=== PATIENT | male | born 1960 | race Caucasian/White ===

== ENCOUNTER 2021-11-15 07:33 | Emergency (ER) | payer SELFPAY ==
[2021-11-15 08:33] LABS: #Basophils 0.1 10x3/uL (0.0-0.2); #Eosinphils 0.3 10x3/uL (0.0-0.5); #Monocytes 0.5 10x3/uL (0.0-1.1); %Basophils 0.8 % (0.0-2.0); %Eosinophils 3.9 % (0.0-6.0); %Lymphocytes 30.2 % (18.0-47.0); %Neutrophils 58.6 % (40.0-75.0); Hemoglobin 15.9 g/dL (13.5-17.5); Mean Corpuscular HGB CONC 35.2 g/dL (32.0-36.0); Mean Corpuscular Hemoglobin 28.7 pg (27.0-33.0); Mean Corpuscular Volume 81.6 fl (81.2-95.1); Mean Platelet Volume 9.2 fl (7.4-10.4); Platelet Count 245 10x3/uL (150-450); RBC Distribution Width 13.8 % (11.5-14.5); Red Blood Cell (RBC) Count 5.54 10x6/uL (4.32-5.72); White Blood Cell (WBC) Count 8.5 10x3/uL (3.5-10.5)
[2021-11-15 08:52] LABS: ALT (SGPT) 19 U/L (8-55); AST (SGOT) 20 U/L (5-34); Alkaline Phosphatase 111 U/L (40-110); Anion Gap 15 mmol/L (10-20); BUN (Urea Nitrogen) 18 mg/dL (8.4-25.7); Bilirubin, Total 0.4 mg/dL (0.2-1.2); CK (CPK) 126 U/L (30-200); Calc. Creatinine Clearance 0 mL/min (70-130); Calcium 9.1 mg/dL (7.8-10.44); Carbon Dioxide 25 mmol/L (23-31); Chloride 103 mmol/L (98-107); Globulin 2.8 g/dL (2.4-3.5); Glucose 104 mg/dL (80-115); Potassium 3.6 mmol/L (3.5-5.1); Protein, Total 6.8 g/dL (5.8-8.1); Sodium 139 mmol/L (136-145)
[2021-11-15] MEDS ORDERED: EPINEPHrine 1 MG/ML AMP ONE (10:08)
[2021-11-15 10:43] LABS: SARS-CoV-2 NAA Rapid Test Not Detected (NotDetected)
[2021-11-15] MEDS ORDERED: Fentanyl 100 MCG/2 ML VIAL ONE ×2 (10:44→12:07)
[2021-11-15] MEDS ORDERED: Ondansetron PF 4 MG/2 ML Vial ONE (10:44)
[2021-11-15] MEDS ORDERED: Dexamethasone 20 MG/5 ML VIAL ONE (10:44)
[2021-11-15] MEDS ORDERED: PROPOFOL 60 ML ONE (10:44)
[2021-11-15] MEDS ORDERED: Lidocaine 2% PF 5 ML VIAL ONE (10:44)
[2021-11-15] MEDS ORDERED: Midazolam HCl 2 mg/2 ml Vial ONE ×2 (10:44)
== END 2021-11-15 10:17 | disposition admitted as inpatient to this hospital (09) ==
LOC: CSHERS 07:33
DX: D49.1 Neoplasm of unspecified behavior of respiratory system (principal); I10 Essential (primary) hypertension; K21.9 Gastro-esophageal reflux disease without esophagitis; F17.210 Nicotine dependence, cigarettes, uncomplicated; Z79.899 Other long term (current) drug therapy
CPT/HCPCS: 70491; 71275; 80053; 82550; 84484; 85025; 88305; 88331; 93005; J0171; J1100; J2001; J2250; J2405; J2704; J3010; U0002

== ENCOUNTER 2022-11-15 09:43 | Outpatient (CLI) | payer OTHER | END 2022-11-15 09:44 | disposition home or self-care (01) | LOC: CSHCT 09:43 | PROVIDERS: ATTEND Internal Medicine Hematology & Oncology | DX: Z12.2 Encounter for screening for malignant neoplasm of respiratory organs (principal); F17.210 Nicotine dependence, cigarettes, uncomplicated | CPT/HCPCS: 71271 ==

== ENCOUNTER 2023-06-21 11:57 | Outpatient (CLI) | payer OTHER ==
[2023-06-21] MEDS ORDERED: Iopamidol 370 76% 100 ML VIAL ONE (14:42)
== END 2023-06-21 11:58 | disposition home or self-care (01) ==
LOC: CSHCT 11:57
PROVIDERS: ATTEND Thoracic Surgery (Cardiothoracic Vascular Surgery)
DX: I71.40 Abdominal aortic aneurysm, without rupture, unspecified (principal); T82.330A Leakage of aortic (bifurcation) graft (replacement), initial encounter; T82.898A Other specified complication of vascular prosthetic devices, implants and grafts, initial encounter; K80.20 Calculus of gallbladder without cholecystitis without obstruction; D35.02 Benign neoplasm of left adrenal gland; D35.01 Benign neoplasm of right adrenal gland; N28.1 Cyst of kidney, acquired
CPT/HCPCS: 74174; 82565; Q9967

== ENCOUNTER 2023-11-20 08:28 | Outpatient (CLI) | payer OTHER | END 2023-11-20 08:29 | disposition home or self-care (01) | LOC: CSHCT 08:28 | PROVIDERS: ATTEND Internal Medicine Hematology & Oncology | DX: Z12.2 Encounter for screening for malignant neoplasm of respiratory organs (principal); F17.210 Nicotine dependence, cigarettes, uncomplicated | CPT/HCPCS: 71271 ==

== ENCOUNTER 2024-10-03 13:24 | Outpatient (CLI) | payer OTHER | END 2024-10-03 13:25 | disposition home or self-care (01) | LOC: CSHULT 13:24 | PROVIDERS: ATTEND Internal Medicine Nephrology | DX: N18.30 Chronic kidney disease, stage 3 unspecified (principal) | CPT/HCPCS: 76770 ==